=== PATIENT | female | born 1975 | race African-American/Black ===

== ENCOUNTER 2018-07-14 07:55 | Emergency (ER) | payer MEDICAID ==
[~2018-07-14] VITALS: Ht 170.2 cm; Wt 80.0 kg
[2018-07-14 10:45] LABS: BG BASE EXCESS 0.5 mmol/L (-2.0-2.0); BG CARBOXYHEMOGLOBIN 3.3 % (0.5-1.5); BG DEOXYHEMOGLOBIN 1.4 % (0.0-5.0); BG HCO3 ACT 23.1 mmol/L (22.0-26.0); BG METHEMOGLOBIN 0.2 % (0.0-1.5); BG OXYGEN SATURATION 98.5 % (92.0-98.5); BG OXYHEMOGLOBIN 95.1 % (94.0-97.0); BG PCO2 31.5 mmHg (35.0-45.0); BG PH 7.484 (7.350-7.450); BG PO2 111.3 mmHg (75.0-100.0); BG SAMPLE SITE LEFT RADIAL; BG VENT MODE ROOM AIR
[2018-07-14] MEDS ORDERED: MORPHINE SULFATE 4 MG/ML CPJ (NOT FOR IM USE) IV ONE ×3 (10:45→17:00)
[2018-07-14 11:00] LABS: CLARITY URINE CLEAR (CLEAR); COLOR URINE YELLOW (YELLOW); KETONES URINE 1+ (NEGATIVE); LEUKOCYTE ESTERASE URINE NEGATIVE (NEGATIVE); NITRITE URINE NEGATIVE (NEGATIVE); OCCULT BLOOD URINE 2+ (NEGATIVE); PROTEIN URINE 1+ (NEGATIVE); SPECIFIC GRAVITY URINE 1.021 (1.005-1.030); UROBILINOGEN URINE 0.2 E.U./dL (0.2-1.0)
[2018-07-14] MEDS ORDERED: SODIUM CHLORIDE 0.9% 500 ML IV ONE (11:00)
[2018-07-14 11:19] LABS: *BENZODIAZEPINES SCREEN URINE NEGATIVE (NEGATIVE); *COCAINE SCREEN URINE NEGATIVE (NEGATIVE); METHADONE URINE SCREEN NEGATIVE (NEGATIVE); OPIATES URINE SCREEN NEGATIVE (NEGATIVE)
[2018-07-14 11:20] LABS: PHENCYCLIDINE URINE SCREEN NEGATIVE (NEGATIVE)
[2018-07-14 11:22] LABS: *AMPHETAMINES SCREEN URINE NEGATIVE (NEGATIVE)
[2018-07-14 11:29] LABS: *BARBITURATES SCREEN URINE NEGATIVE (NEGATIVE)
[2018-07-14] MEDS ORDERED: ONDANSETRON HCL 4MG/2ML INJ IV ONE ×3 (11:30→17:00)
[2018-07-14 11:36] LABS: CANNABINOID URINE SCREEN PRESUMTIVE POSITIVE (NEGATIVE)
[2018-07-14 11:55] LABS: CHLORIDE 103 mEq/L (98-107)
[2018-07-14 11:59] LABS: HEMATOCRIT. 40.7 % (36.0-48.0); HEMOGLOBIN. 13.4 g/dL (12.0-16.0); MEAN CORPUSCULAR HEMOGLOBIN 28.3 pg (28.0-32.0); MEAN CORPUSCULAR VOLUME 86.3 fL (81.0-99.0); RED BLOOD CELL COUNT 4.72 mill/uL (4.2-5.4); RED CELL DISTRIBUTION WIDTH 14.1 % (11.6-14.6)
[2018-07-14 12:05] LABS: BETA HYDROXYBUTYRATE 0.6 mMol/L (0.0-0.3)
[2018-07-14 13:07] LABS: PLATELET ESTIMATE NORMAL
[2018-07-14] MEDS ORDERED: METOPROLOL TARTRATE 50MG TABLET PO ONE (13:15)
[2018-07-14] MEDS ORDERED: METOPROLOL TARTRATE 100MG TABLET PO ONE (13:15)
[2018-07-14] MEDS ORDERED: LISINOPRIL 10MG TABLET PO ONE (13:15)
[2018-07-14] MEDS ORDERED: CLONIDINE 0.2MG TABLET PO ONE ×2 (15:15→16:45)
[2018-07-14] MEDS ORDERED: METOPROLOL TARTRATE 25MG TABLET PO ONE (15:15)
[2018-07-14 20:16] VITALS: BP 100/60
[2018-07-14] MEDS ORDERED: SULFAMETHOXAZOLE/TRIMETHOPRIM 800/160MG TABLET PO ONE (20:45)
== END 2018-07-14 20:16 | disposition home or self-care (01) ==
LOC: ER 08:20 → CANRESERV 16:55 → ENRESERV 16:55 → CANBEDREQ 17:07 → ER 20:16
DX: F11.23 Opioid dependence with withdrawal (principal); N39.0 Urinary tract infection, site not specified; N17.0 Acute kidney failure with tubular necrosis; F12.129 Cannabis abuse with intoxication, unspecified; I10 Essential (primary) hypertension; E86.0 Dehydration; K52.9 Noninfective gastroenteritis and colitis, unspecified; K31.84 Gastroparesis; R73.9 Hyperglycemia, unspecified; R31.9 Hematuria, unspecified; R79.89 Other specified abnormal findings of blood chemistry; K92.0 Hematemesis; E87.3 Alkalosis
CPT/HCPCS: 36415; 36600; 71045; 74176; 80053; 80305; 81003; 81025; 82010; 82140; 82375; 82805; 83036; 83605; 83880; 84484; 85025; 87040; 93005; 96361; 96374; 96375; 96376; 99284; J2270; J2405; J7040; J7030